=== PATIENT | male | born 1965 | race Two or more races ===

== ENCOUNTER 2024-01-18 09:26 | Outpatient (CLI) | payer OTHER | END 2024-01-18 23:59 | disposition home or self-care (01) | LOC: RAD 09:26 | PROVIDERS: ATTEND Internal Medicine Infectious Disease | DX: Z11.1 Encounter for screening for respiratory tuberculosis (principal) | CPT/HCPCS: 71046 ==

== ENCOUNTER 2024-11-01 11:09 | Outpatient (CLI) | payer BC ==
[2024-11-01 11:55] LABS: MEAN PLATELET VOLUME 7.9 FL (7.4-10.4); RED CELL DISTRIBUTION WIDTH 13.1 % (11.5-14.5)
[2024-11-01 13:26] LABS: SYPHILIS SCREENING TEST POC NEGATIVE (Negative)
[2024-11-02 06:12] LABS: ANTINUCLEAR ANTIBODIES Negative (Negative)
[2024-11-03 13:12] LABS: ANGIOTESIN-CONVERTING ENZYME 25 U/L (14-82)
[2024-11-09 15:10] LABS: HLA B 27 DISEASE ASSOCIATION Negative (.)
== END 2024-11-01 23:59 | disposition home or self-care (01) ==
LOC: LAB 11:09
PROVIDERS: ATTEND Ophthalmology
DX: H20.011 Primary iridocyclitis, right eye (principal)
CPT/HCPCS: 36415; 82164; 85025; 85651; 86038; 86431; 86780

== ENCOUNTER 2025-02-28 08:55 | Outpatient (CLI) | payer BC ==
[2025-02-28 09:40] LABS: MEAN PLATELET VOLUME 8.2 FL (7.4-10.4); RED CELL DISTRIBUTION WIDTH 13.1 % (11.5-14.5)
[2025-02-28 09:51] LABS: CHOL/HDL RATIO 4.0 (0.00-4.99); CREATININE 0.80 MG/DL (0.60-1.10); LDL CHOLESTEROL 111 MG/DL (50-100); TOTAL CARBON DIOXIDE 29.2 MMOL/L (24-32); eGFR > 90 ML/MIN
--- NOTE | 2025-02-28 10:21 | RADIOLOGY REPORT ---
INDICATION: OTHER LOW BACK PAIN TECHNIQUE: Multiple real-time sonographic images of the kidneys and bladder were obtained. COMPARISON: None FINDINGS: The right kidney measures 12 cm in length, which is normal in size. There is normal echogenicity of the right kidney. No hydronephrosis. The left kidney measures 12 cm in length, which is normal in size. There is normal echogenicity of the left kidney. No hydronephrosis. No large intraluminal masses are seen in the bladder. Prior to voiding the bladder volume measures volume 796 cc. Following voiding, the bladder volume residual measures 105 cc. IMPRESSION: 1. Normal sonographic appearance of the kidneys. No hydronephrosis.
[2025-03-01 09:12] LABS: % FREE PSA 26.7 % (.); PROSTATE SPECIFIC AG, SERUM 0.6 ng/mL (0.0-4.0)
== END 2025-02-28 23:59 | disposition home or self-care (01) ==
LOC: RAD 08:55
PROVIDERS: ATTEND Family Medicine
DX: H40.9 Unspecified glaucoma (principal); Z76.89 Persons encountering health services in other specified circumstances; Z13.220 Encounter for screening for lipoid disorders; M54.59 Other low back pain; Z13.228 Encounter for screening for other metabolic disorders; Z12.5 Encounter for screening for malignant neoplasm of prostate
CPT/HCPCS: 36415; 76770; 80053; 80061; 84153; 84154; 85025